=== PATIENT | female | born 1935 | race Caucasian/White ===

== ENCOUNTER 2016-03-21 05:56 | Inpatient (IN) | payer MEDICARE, OTHER ==
[~2016-03-21] VITALS: Ht 160 cm; Wt 88.0 kg
[2016-03-21] VITALS (25 sets, daily range): BP systolic 106–137; BP diastolic 51–93; PULSE 71–97; RESP 12–24; Ht 160 cm; Wt 88.0 kg
[~2016-03-21 05:56] MED LIST: ALPR1TAB2 PO; ANAG0.5C PO; ASPI-535 PO; HYDR-906; LOVA20TA; POLY17PO PO; PREMARIN; [UNRECOGNIZED DRUG - CODE] PO
[2016-03-21] MEDS ORDERED: LABETALOL HCL 20MG INJ IV PRN (06:00)
[2016-03-21] MEDS ORDERED: MIDAZOLAM 1 MG/ML 2 ML INJ IV PRN (06:00)
[2016-03-21] MEDS ORDERED: FENTAnyl 50 MCG/ML VIAL IV PRN ×2 (06:00)
[2016-03-21] MEDS ORDERED: MEPERIDINE 25 MG INJ IV PRN (06:00)
[2016-03-21] MEDS ORDERED: DIPHENHYDRAMINE 50 MG INJ IV PRN (06:00)
[2016-03-21] MEDS ORDERED: ATROPINE 1 MG/10 ML SYRINGE IV PRN (06:00)
[2016-03-21] MEDS ORDERED: ONDANSETRON 4 MG INJ IV PRN (06:00)
[2016-03-21] MEDS ORDERED: hydrALAzine 20 MG INJ IV PRN (06:00)
[2016-03-21] MEDS ORDERED: EPHEDrine SULFATE 50 MG/5 ML SYG IV PRN (06:00)
[2016-03-21] MEDS ORDERED: GLYCOPYRROLATE 1 MG INJ ONE (06:01)
[2016-03-21] MEDS ORDERED: NEOSTIGMINE 3 MG/3 ML SYRINGE ONE (06:01)
[2016-03-21] MEDS ORDERED: PROPOFOL 20 ML ONE (06:01)
[2016-03-21] MEDS ORDERED: LIDOCAINE 2% (SDV) 5 ML INJ ONE ×2 (06:01→11:20)
[2016-03-21] MEDS ORDERED: FENTAnyl 50 MCG/ML VIAL ONE ×2 (06:01→11:15)
[2016-03-21] MEDS ORDERED: MIDAZOLAM 1 MG/ML 2 ML INJ ONE (06:01)
[2016-03-21] MEDS ORDERED: ROCURONIUM 50 MG INJ ONE (06:01)
[2016-03-21] MEDS ORDERED: ROPIVACAINE 0.5 % 30 ML VIAL ONE ×2 (06:02→06:51)
[2016-03-21] MEDS ORDERED: LIDOCAINE 2%/EPI 30 ML INJ ONE (06:02)
[2016-03-21] MEDS ORDERED: DEXAMETHASONE 4 MG/ML 1 ML INJ ONE (06:05)
[2016-03-21] MEDS ORDERED: ONDANSETRON 4 MG INJ ONE (06:06)
[2016-03-21] MEDS ORDERED: TIZA4CAP6 PO (06:34)
--- NOTE | 2016-03-21 06:37 | HPN ---
Date/Time of Note Date/Time of Note DATE: 03/21/16 TIME: 06:37 Interval H&P Admission Note Pt. seen H&P reviewed: No system changes ANALISA WONG MD Mar 21, 2016 06:37
[2016-03-21] MEDS ORDERED: POLYMYXIN/BACITRACIN 1L IRRIG ONE (06:51)
[2016-03-21] MEDS ORDERED: POVIDONE IODINE 10% 28.4 GM OINT ONE (06:51)
[2016-03-21] MEDS ORDERED: CEFAZOLIN 1 GM INJ ONE (07:00)
[2016-03-21 07:22] LABS: INR 1.11; PROTIME 14.3 Sec (12.2-14.2); PT RATIO 1.1
[2016-03-21 07:23] LABS: PARTIAL THROMBOPLASTIN TIME 30.3 Sec (25.0-35.0)
[2016-03-21] MEDS ORDERED: hydrALAzine 20 MG INJ ONE (10:06)
[2016-03-21] MEDS ORDERED: LABETALOL HCL 20MG INJ ONE (10:10)
[2016-03-21] MEDS ORDERED: SUCCINYLCHOLINE CHLORIDE 100 MG/5 ML SYG IV ONE (10:22)
[2016-03-21] MEDS ORDERED: CEFAZOLIN 1 GM INJ IV SCH (12:30)
[2016-03-21] MEDS: morphine 1 MG/ML 30 ML (PCA) IV SCH (13:15)
[2016-03-21] MEDS: CEFAZOLIN 2 GM/50 ML (PMX) 50 ML IVPB SCH ×2 (13:59→21:17)
[2016-03-21] MEDS: SOD CHLORIDE 0.9% 1,000 ML IV SCH ×2 (13:59→22:15)
--- NOTE | 2016-03-21 14:22 | RADRPT ---
PROCEDURE: Intraoperative imaging of the right ankle with fluoroscopy. CLINICAL INDICATION: Right ankle pain. Intraoperative. TECHNIQUE: 13 images of the right ankle were obtained in the operating room with an image intensif ier. No radiologist was in attendance. 0.5 minutes of fluoroscopy time was used. COMPARISON: No prior study is available for comparison. FINDINGS: Images demonstrate fusion of the tibiotalar joint with 3 large cannulated screws. IMPRESSION: 1. Intraoperative imaging of the right ankle. RPTAT: QQ .Bolivar Lehman MD, MD Date Time Electronically viewed and signed by .Bolivar Lehmna MD, MD on 03/21/2016 14:21 .R/
--- NOTE | 2016-03-21 17:20 | OPR ---
DATE OF OPERATION: 03/21/2016 PREOPERATIVE DIAGNOSES: 1. 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 2. Status post subtalar fusion. 3. Osteochondral loose body. 4. Retained screw in the talus. POSTOPERATIVE DIAGNOSES: 1. 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 2. Status post subtalar fusion. 3. Osteochondral loose body. 4. Retained screw in the talus. OPERATION PERFORMED 1. Arthroscopy of the right ankle with soft distraction. 2. Extensive debridement, removal of all arthritic cartilage. 3. Removal of osteochondral loose body greater than 1 cm. 4. Insertion of the Ignite. 5. Arthrodesis 6. Insertion of Ignite and blood into the operative site. 7. Arthrodesis of the right ankle with three 7.3 AO cannulated screws and 2 washers. 8. Use of fluoroscopy to verify position of the angle guide pins and screws. 9. Short-leg cast. SURGEON: Analisa Carmen MD PETROPHYSICAL ENGINEER: Tung Curry MD ANESTHESIA: General with popliteal block. TOURNIQUET TIME: 155 minutes. DESCRIPTION OF PROCEDURE: The patient taken to the operating room and placed in supine position. S atisfactory popliteal block was given. Satisfactory general anesthesia was administered. The right thigh secured in the thigh clark. Arms were carefully padded and right leg was prepped and draped in usual manner. Superficial peroneal nerve could not be marked out, could not be identified. Sof t tissue distraction was applied after tourniquet was inflated to 250 mmHg. The ankle essentially h ad no articular cartilage left except for a few scattered portions of the tibia and the talus. It w as grade 4 chondromalacia throughout with sclerotic bone. Osteophytes along the anterior distal tib ia from medial to lateral. There was a large loose body in the medial malleolar talar articulatio n, which was removed with pituitary rongeur. The osteochondral loose body was removed with a pituitary rongeur. After we had removed the loose b qiana, removal of AO screw from the subtalar joint and talus. The articular cartilage was removed wi th different angled curettes and gildardo from the medial malleolus, the talus and then the lateral g utter and anterior gutter. After all articular cartilage was removed from the talus a bur was used to lightly abrade the bone 1 mm until we got through the sclerotic bone into good bleeding bone. Mu ltiple "spot welds" were made to facilitate healing along the talus. The articular surface was dimple michelle with a shaver and curettes and the tibia including the medial malleolus and fibula. A bur was u sed to remove bone until the sclerotic bone was eliminated, and there was good bleeding bone seen. Multiple spot welds were made again in the tibia and fibula and medial malleolus. Multiple drill ho les were made with 0.062 K-wire into the tibia and talus to facilitate bleeding. Using a 7-degree a rthroscope the medial and lateral gutters were debrided of all cartilage and then burred and spot we lds made. The same thing was done through the posterior lateral portal. The FHL was well visualize d and was intact. After good bleeding surfaces were available everywhere, we felt it was time to in sert the guide pins. Using the Micro Vector guide pin was inserted medially by marking the skin, ma eliza an incision through the skin and elevating the saphenous nerve and vein and then drilling the g uide pin through the Micro Vector device. The guide pin was 7.3 AO cannulated screw guide pin, the Micro Vector was used for the lateral side as well, marked the skin, made an incision along the post erior fibula, released the peroneal tendon sheath and inserted the guide pin. Guide pins were check ed in AP and lateral direction. Once they were exactly where we wanted them we closed the portal po steriorly and anterolaterally with 3-0 black nylon interrupted. The Ignite was mixed with blood and then injected to facilitate healing. That medial portal was closed then with 3-0 black nylon. Tanvir rniquet was released, bleeders were coagulated, wounds irrigated with antibiotic solution. The guid e pin from the medial side was then inserted with the foot in 5 degrees of valgus and neutral dorsi and plantarflexion trying to compress the ankle. Depth gauge was used and then the hole was partial ly drilled and then a screw was inserted 7.3 AO cannulated type with a washer. A second screw was p laced more posteriorly. This third guide pin was advanced through the fibula into the talar head an d neck, checked and partially drilled and then a screw inserted. Excellent fixation was obtained. It should be noted that prior to placing the screws across the ankle into the talus in the subtalar joint the screw was identified, that previously had been placed years ago. It was removed with a sc rewdriver. The hole was curetted clear and it was completely cleaned out. By doing this, it made i t much easier to pass the guide pins and screws to get good compression. We were able to miss all o f the maia with our screws. After all the screws were tight final fluoroscopic views in AP and l ateral directions showed good position and alignment of the screws in all 3 went into subtalar joint , except for the lateral screw purposely to get good compression. We used 32 mm threaded instead of 16 mm threads. Wounds were irrigated again with antibiotic solution. Deep tissues closed with 2-0 and 3-0 undyed Vicryl, and the skin with 4-0 black nylon. Saphenous nerve block was done with 0.5% ropivacaine. Compression dressing was applied and patient brought through and short cast was appli ed in neutral position. Interprocedure sponge and needle count was correct. Patient well and the c ast splint in the recovery room. LOAN ASSISTANT ORTHOPEDIC SURGEON: During the procedure, an psychiatric nursing assistant orthopedic surgeon was used at my request. The psychiatric nursing assistant helped with distracting the ankle, manipulating the arthroscope. The assist ant also inserted the guide pin and screws while I held the ankle reduced. Without a skilled orthop edic surgeon assisting me, this could not have been done; therefore, should be compensated appropria telsarah. Dictated By: ANALISA RENE/LIYA Conf#: [id number] DID#: [id number]
[2016-03-21] MEDS ORDERED: TIZANIDINE 4 MG TAB PO PRN (20:30)
[2016-03-21] MEDS ORDERED: ALPRAZOLAM 1 MG TAB PO SCH (21:00)
[2016-03-21] MEDS: SENNA/DOCUSATE NA (8.6MG/50MG) TAB PO SCH (21:17)
[2016-03-21] MEDS: ALPRAZOLAM 0.25 MG TAB PO SCH (22:15)
[2016-03-21] MEDS: ANAGRELIDE 0.5 MG CAP PO SCH (22:15)
[2016-03-21] MEDS: ONDANSETRON 4 MG INJ IV PRN (22:16)
[2016-03-22] MEDS: OXYCODONE/ACETAMINOPHEN (5/325) TAB PO PRN ×4 (02:24→19:38)
[2016-03-22] MEDS: CEFAZOLIN 2 GM/50 ML (PMX) 50 ML IVPB SCH ×3 (05:28→21:40)
--- NOTE | 2016-03-22 07:05 | PN ---
Date/Time of Note Date/Time of Note DATE: 03/22/16 TIME: 07:02 Assessment/Plan VTE Prophylaxis VTE Prophylaxis Intervention: ambulation, SCD's, other Lines/Catheters IV Catheter Type (from Nrsg): Peripheral IV Urinary Cath still in place: No Assessment/Plan Assessment/Plan POD#1 s/p R ankle fusion - Pain control - SCD's/ambulation/xarelto for DVT ppx - NWB RLE. PT today - IF pain controlled and cleared by PT, ok for d/c this afternoon Subjective 24 Hr Interval Summary Free Text/Dictation Pain this am as block wearing off. Slept some. Ate broth and jello so far. No BM. Exam/Review of Systems Vital Signs Vitals Vital Signs Date Time Temp Pulse Resp B/P Pulse Ox O2 Delivery O2 Flow Rate FiO2 03/22/16 05:00 18 03/21/16 20:26 98.1 72 132/68 98 Room Air 03/21/16 13:45 2.0 Intake and Output 03/21/16 03/21/16 03/22/16 15:00 23:00 07:00 Intake Total 1500 ml 690 ml 2000 ml Output Total 100 ml 850 ml 1500 ml Balance 1400 ml -160 ml 500 ml Exam RLE: cast intact. leg elevated. toes warm/well perfused. decreased sens to light touch globally about toes. Medications Medications Current Medications Senna/Docusate Sodium (Senokot-S) 1 tab BID PO Last administered on 03/21/16 21:17; Admin Dose 1 TAB; Start 03/21/16 at 21:00 Magnesium Hydroxide (Milk Of Mag) 30 ml HS PO ; Start 03/23/16 at 21:00 Bisacodyl 10 mg 10 mg DAILY PRN [place] CONSTIPATION; Start 03/21/16 at 12:30 Sodium Chloride (NS) 1,000 ml @ 100 mls/hr Q10H IV Last administered on 22:15; Admin Dose 100 MLS/HR; Start 03/21/16 at 12:23 Oxycodone/ Acetaminophen (Percocet (5/ 325)) 2 tab Q4H PRN PO PAIN Last administered on 03/22/16 02:24; Admin Dose 2 TAB; Start 03/21/16 at 12:30 Ondansetron HCl (Zofran Inj) 4 mg Q4H PRN IV NAUSEA AND/OR VOMITING Last administered on 03/21/16 22:16; Admin Dose 4 MG; Start 03/21/16 at 12:30 Morphine Sulfate 1.5 MG DOSE 10 ... Q4PCA IV Last administered on 03/21/16 13 :15; Admin Dose 30 MG; Start 03/21/16 at 12:30 Cefazolin Sodium/ Dextrose (Ancef 2 Gm/50 ml (Pmx)) 50 ml @ 100 mls/hr Q8 IVPB Last administered on 03/22/16 05:28; Admin Dose 100 MLS/HR; Start 03/21/16 at 14:00; Stop 03/23/16 at 06:29 Anagrelide HCl (Anagrelide) 0.5 mg BID PO Last administered on 03/21/16 22:15 ; Admin Dose 0.5 MG; Start 03/21/16 at 21:00 Tizanidine HCl (Zanaflex) 4 mg Q6H PRN PO SPASTICITY; Start 03/21/16 at 20:30 Alprazolam (Xanax) 0.5 mg HS PO Last administered on 03/21/16 22:15; Admin Dose 0.25 MG; Start 03/21/16 at 21:00 ANALISA WONG MD Mar 22, 2016 07:05
[2016-03-22 08:10] VITALS: BP 128/61; RESP 18
[2016-03-22] MEDS: SOD CHLORIDE 0.9% 1,000 ML IV SCH ×2 (08:23→17:04)
[2016-03-22] MEDS: ONDANSETRON 4 MG INJ IV PRN (08:24)
[2016-03-22] MEDS: ANAGRELIDE 0.5 MG CAP PO SCH ×2 (08:24→21:36)
[2016-03-22] MEDS: SENNA/DOCUSATE NA (8.6MG/50MG) TAB PO SCH ×2 (08:24→21:36)
--- NOTE | 2016-03-22 16:26 | RADRPT ---
PROCEDURE: XR left knee. CLINICAL INDICATION: Knee pain. TECHNIQUE: AP and lateral views are available for review. COMPARISON: 08/28/2012 FINDINGS: There is a bone anchor present in the proximal medial tibia. There is a total knee replacement. There is no evidence of loosening of the prosthesis. There is dif fuse osteopenia No acute fracture or dislocation is seen.No osseous lesions are identified. The sof t tissues are unremarkable . IMPRESSION: Unremarkable total knee replacement. Diffuse osteopenia. No fracture identified RPTAT: HGDB .Zia Cortes MD, MD Date Time Electronically viewed and signed by .Zia Cortes MD, on 03/22/2016 16:26 .B/
[2016-03-22] MEDS ORDERED: NALOXONE (0.4 MG/ML) INJ IV PRN (16:30)
[2016-03-22] MEDS: PANTOPRAZOLE 40 MG INJ IV SCH (17:03)
[2016-03-22] MEDS: RIVAROXABAN 10 MG TABLET PO SCH (17:04)
[2016-03-22] MEDS: morphine 1 MG/ML 30 ML (PCA) IV SCH (17:13)
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
[2016-03-22 19:46] VITALS: BP 128/60; RESP 18
[2016-03-22] MEDS: MAGNESIUM CHLORIDE (SR) 64 MG TAB PO SCH (21:36)
[2016-03-22] MEDS: TIZANIDINE 4 MG TAB PO SCH (21:36)
[2016-03-22] MEDS: ALPRAZOLAM 0.25 MG TAB PO SCH ×2 (23:12→23:14)
[2016-03-23] MEDS: OXYCODONE/ACETAMINOPHEN (5/325) TAB PO PRN ×4 (01:22→20:15)
[2016-03-23] MEDS: SOD CHLORIDE 0.9% 1,000 ML IV SCH ×2 (04:23→12:11)
[2016-03-23] MEDS: PANTOPRAZOLE 40 MG INJ IV SCH ×2 (05:23→17:59)
[2016-03-23] MEDS: CEFAZOLIN 2 GM/50 ML (PMX) 50 ML IVPB SCH (05:24)
[2016-03-23 05:58] LABS: BASOPHILS % 0.3 % (0.0-2.0); EOSINOPHILS # 0.1 10^3/ul (0.0-0.5); HEMOGLOBIN 8.2 g/dl (12.0-16.0); LYMPHOCYTES % 10.2 % (15.0-51.0); MEAN CORPUSCULAR HEMOGLOBIN 31.8 pg (29.0-33.0); MEAN CORPUSCULAR HGB CONC 34.4 g/dl (32.0-37.0); MEAN CORPUSCULAR VOLUME 92.5 fl (82.0-101.0); MONOCYTE # 0.8 10^3/ul (0.3-0.9); MONOCYTES % 8.4 % (0.0-11.0); NEUTROPHIL # 7.9 10^3/ul (1.6-7.5); NEUTROPHILS % 80.1 % (39.0-77.0); PLATELET COUNT 464 10^3/UL (140-440); RED BLOOD COUNT 2.59 10^6/ul (4.20-5.40); RED CELL DISTRIBUTION WIDTH 17.1 % (11.5-14.5); UNCORRECTED WBC 9.8 10^3/ul (4.8-10.8); WHITE BLOOD COUNT 9.8 10^3/ul (4.8-10.8)
[2016-03-23 06:05] LABS: ALBUMIN 3.1 g/dl (3.3-4.9); POTASSIUM 4.2 mmol/L (3.5-5.1)
[2016-03-23 06:08] LABS: ALBUMIN/GLOBULIN RATIO 1.14; BILIRUBIN,INDIRECT 0.1 mg/dl (0-1.1); BILIRUBIN,TOTAL 0.1 mg/dl (0.2-1.3); CALCIUM 8.4 mg/dl (8.4-10.2); CREATININE 1.07 mg/dl (0.44-1.00); TOTAL PROTEIN 5.8 g/dl (6.1-8.1)
[2016-03-23 06:20] LABS: CONDITION 1; LH ANALYZER COMMENTS 1; SUSPECT 1
[2016-03-23] MEDS: ONDANSETRON 4 MG INJ IV PRN (06:38)
--- NOTE | 2016-03-23 06:41 | PN ---
Date/Time of Note Date/Time of Note DATE: 03/23/16 TIME: 06:38 Assessment/Plan VTE Prophylaxis VTE Prophylaxis Intervention: ambulation, SCD's, other Lines/Catheters IV Catheter Type (from Nrsg): Peripheral IV Urinary Cath still in place: No Assessment/Plan Assessment/Plan POD#2 s/p R ankle fusion - Cont PT, NWB RLE - Pain control - cont current regimen. wean off product development director by tomorrow - DVT ppx: xarelto, scd - Advance diet slowly - Dispo: to SNF tomorrow - Appreciate medicine consult/assistance Subjective 24 Hr Interval Summary Free Text/Dictation Nausea this morning, no emesis. Pain better today. Feeling back in foot. Exam/Review of Systems Vital Signs Vitals Vital Signs Date Time Temp Pulse Resp B/P Pulse Ox O2 Delivery O2 Flow Rate FiO2 03/23/16 01:00 18 03/22/16 19:46 98.8 76 128/60 98 03/21/16 20:26 Room Air 03/21/16 13:45 2.0 Intake and Output 03/22/16 03/22/16 03/23/16 15:00 23:00 07:00 Intake Total 50 ml 1220 ml Balance 50 ml 1220 ml Exam RLE: cast intact RLE, elevated. sensation intact light touch toes, bcr, flexes and extends great toe. Results Result Diagram: 03/23/16 0435 03/23/16 0435 Results 24 hrs Laboratory Tests Test 03/23/16 04:35 Alanine Aminotransferase (ALT/SGPT) 25 Albumin 3.1 L Albumin/Globulin Ratio 1.14 Alkaline Phosphatase 54 Anion Gap 11 Aspartate Amino Transf (AST/SGOT) 41 Basophils # 0.0 Basophils % 0.3 Blood Morphology Comment Blood Urea Nitrogen 20 Calcium Level 8.4 Carbon Dioxide Level 26 Chloride Level 106 Creatinine 1.07 H Direct Bilirubin 0.00 Eosinophils # 0.1 Eosinophils % 1.0 Globulin 2.70 Glucose Level 98 Hematocrit 24.0 L Hemoglobin 8.2 L Indirect Bilirubin 0.1 Lymphocytes # 1.0 Lymphocytes % 10.2 L Magnesium Level 2.1 Mean Corpuscular Hemoglobin 31.8 Mean Corpuscular Hemoglobin Concent 34.4 Mean Corpuscular Volume 92.5 Mean Platelet Volume 10.0 Monocytes # 0.8 Monocytes % 8.4 Neutrophils # 7.9 H Neutrophils % 80.1 H Nucleated Red Blood Cells # 0.0 Nucleated Red Blood Cells % 0.0 Platelet Count 464 H Potassium Level 4.2 Red Blood Count 2.59 L Red Cell Distribution Width 17.1 H Sodium Level 139 Total Bilirubin 0.1 L Total Protein 5.8 L White Blood Count 9.8 Medications Medications Current Medications Senna/Docusate Sodium (Senokot-S) 1 tab BID PO Last administered on 03/22/16 21:36; Admin Dose 1 TAB; Start 03/21/16 at 21:00 Magnesium Hydroxide (Milk Of Mag) 30 ml HS PO ; Start 03/23/16 at 21:00 Bisacodyl 10 mg 10 mg DAILY PRN [place] CONSTIPATION; Start 03/21/16 at 12:30 Sodium Chloride (NS) 1,000 ml @ 100 mls/hr Q10H IV Last administered on 17:04; Admin Dose 100 MLS/HR; Start 03/21/16 at 12:23 Oxycodone/ Acetaminophen (Percocet (5/ 325)) 2 tab Q4H PRN PO PAIN Last administered on 03/23/16 01:22; Admin Dose 2 TAB; Start 03/21/16 at 12:30 Ondansetron HCl (Zofran Inj) 4 mg Q4H PRN IV NAUSEA AND/OR VOMITING Last administered on 03/22/16 08:24; Admin Dose 4 MG; Start 03/21/16 at 12:30 Morphine Sulfate (morphine) 1.5 MG DOSE 10 ... Q4PCA IV Last administered on 17:13; Admin Dose 30 MG; Start 03/21/16 at 12:30 Anagrelide HCl (Anagrelide) 0.5 mg BID PO Last administered on 03/22/16 21:36 ; Admin Dose 0.5 MG; Start 03/21/16 at 21:00 Alprazolam (Xanax) 0.5 mg HS PO Last administered on 03/22/16 23:14; Admin Dose 0.25 MG; Start 03/21/16 at 21:00 Pantoprazole (Protonix Iv) 40 mg BID@06,18 IV Last administered on 03/23/16 05 :23; Admin Dose 40 MG; Start 03/22/16 at 18:00 Tizanidine HCl (Zanaflex) 4 mg BID PO Last administered on 03/22/16 21:36; Admin Dose 4 MG; Start 03/22/16 at 21:00 Magnesium Chloride (Mag 64) 128 mg BID PO Last administered on 03/22/16 21:36 ; Admin Dose 128 MG; Start 03/22/16 at 21:00 Naloxone HCl (Narcan) 0.2 mg Q2M PRN IV DECREASED REPIRATORY RATE; Start at 16:30 ANALISA WONG MD Mar 23, 2016 06:41
[2016-03-23 07:49] VITALS: BP 123/58; RESP 20
[2016-03-23] MEDS: SENNA/DOCUSATE NA (8.6MG/50MG) TAB PO SCH ×2 (08:50→21:55)
[2016-03-23] MEDS: MAGNESIUM CHLORIDE (SR) 64 MG TAB PO SCH ×2 (08:51→21:56)
[2016-03-23] MEDS: ANAGRELIDE 0.5 MG CAP PO SCH ×2 (08:51→21:56)
[2016-03-23] MEDS: TIZANIDINE 4 MG TAB PO SCH ×2 (08:52→21:55)
[2016-03-23] MEDS: RIVAROXABAN 10 MG TABLET PO SCH (17:59)
[2016-03-23] MEDS ORDERED: ACETAMINOPHEN 500 MG TAB PO STA (18:01)
[2016-03-23] MEDS ORDERED: FUROSEMIDE 20 MG INJ IV ONE (18:30)
[2016-03-23] MEDS ORDERED: DIPHENHYDRAMINE 50 MG CAP PO ONE (18:30)
--- NOTE | 2016-03-23 19:15 | PN ---
DATE: 03/23/2016 SUBJECTIVE: The patient complains of fatigue and cold today. She still has pain and instability of the left knee when she tries to put weight on it. The patient also reports that she was unable to sleep last night because the hypoxia alarm kept going off. OBJECTIVE: VITAL SIGNS: Temperature 98.4, blood pressure 123/58, pulse of 88, respiration rate 20, O2 saturati on 95% on room air. HEENT: Pupils equally round, reactive to light. Oropharynx clear. CHEST: Lungs are clear to auscultation anteriorly. CARDIAC: Regular rate and rhythm. Normal S1, S2. ABDOMEN: Active bowel sounds, soft, nondistended, nontender. EXTREMITIES: Right lower leg in a plaster cast elevated. Left lower leg has normal distal pulses a nd negative for Homans. LABORATORY DATA: WBC 9.8, hemoglobin 8.2, hematocrit 24.0, platelet count 464,000. Sodium 139, pot assium 4.2, chloride 106, bicarbonate 26, BUN 20, creatinine 1.07, glucose 98. Liver enzymes are wi thin normal limits except for decreased total protein of 5.8 and albumin of 3.1. Her magnesium is n ormal at 2.1. The patient's left knee x-ray shows previous total knee replacement, diffuse osteopen ia, no fracture, and no abnormalities in alignment. ASSESSMENT AND PLAN: 1. Status post right ankle arthrodesis and arthroscopy. The patient still has multiple issues post operatively. We will continue to proceed with the physical therapy very gingerly. Will consider le ft knee brace for increased ability of that loose knee with physical therapy. 2. Anemia. The patient has mild chronic anemia from her myelodysplastic syndrome, which is now wor se after surgery. This is also contributing to her weakness, fatigue, coldness. The patient is agr eeable to receiving transfusion with packed red blood cells and we will go ahead and transfuse her w ith 3 units of PRBCs today with premedications of Tylenol and Benadryl. I will also give her a very small dose of furosemide for diuresis after the first unit of packed red blood cells, since patient has been receiving IV fluids continuously for the past few days and may be a little bit fluid overl oaded after transfusion. 3. Frequent episodes of hypopnea and hypoxia at night, most likely due to continuous ROLLED OATS MILL OPERATOR administra tion with morphine. The patient is not in any pain right now, so we will discontinue the continuous IV drip and ROLLED OATS MILL OPERATOR, but allow the delivery of intermittent medication as needed by the patient. Dictated By: SANDRA MORIN MD DP/NTS Conf#: [id number] DID#: [id number] CC: ANALISA WONG MD;*EndCC*
[2016-03-23 19:56] VITALS: BP 126/61; RESP 22
[2016-03-23] MEDS: MAGNESIUM HYDROXIDE 30ML CUP PO SCH (21:55)
[2016-03-23] MEDS: ALPRAZOLAM 0.25 MG TAB PO SCH (21:55)
[2016-03-24] MEDS: OXYCODONE/ACETAMINOPHEN (5/325) TAB PO PRN ×4 (00:26→16:29)
[2016-03-24] MEDS ORDERED: FUROSEMIDE 20 MG INJ ONE (04:12)
[2016-03-24 06:12] LABS: BASOPHILS % 0.3 % (0.0-2.0); EOSINOPHILS # 0.1 10^3/ul (0.0-0.5); EOSINOPHILS % 1.6 % (0.0-7.0); HEMATOCRIT 29.1 % (37.0-47.0); HEMOGLOBIN 10.1 g/dl (12.0-16.0); LYMPHOCYTES # 0.6 10^3/ul (0.8-2.9); LYMPHOCYTES % 7.1 % (15.0-51.0); MEAN CORPUSCULAR HGB CONC 34.5 g/dl (32.0-37.0); MEAN CORPUSCULAR VOLUME 92.8 fl (82.0-101.0); MEAN PLATELET VOLUME 9.9 fl (7.4-10.4); MONOCYTE # 0.6 10^3/ul (0.3-0.9); NEUTROPHIL # 6.7 10^3/ul (1.6-7.5); PLATELET COUNT 474 10^3/UL (140-440); RED BLOOD COUNT 3.14 10^6/ul (4.20-5.40); RED CELL DISTRIBUTION WIDTH 16.3 % (11.5-14.5)
[2016-03-24 06:17] LABS: CONDITION 1; LH ANALYZER COMMENTS 1; SUSPECT 1
[2016-03-24 06:20] LABS: CALCIUM 8.5 mg/dl (8.4-10.2); CREATININE 1.03 mg/dl (0.44-1.00)
--- NOTE | 2016-03-24 07:08 | PN ---
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 Pain controlled. No acute events overnight. Exam/Review of Systems Vital Signs Vitals Vital Signs Date Time Temp Pulse Resp B/P Pulse Ox O2 Delivery O2 Flow Rate FiO2 03/23/16 19:56 100.2 87 22 126/61 97 03/21/16 20:26 Room Air 03/21/16 13:45 2.0 Intake and Output 03/23/16 03/23/16 03/24/16 15:00 23:00 07:00 Intake Total 1360 ml 1470 ml Balance 1360 ml 1470 ml Exam RLE: cast intact and elevated. sens/motor intact exposed toes. bcr. Results Result Diagram: 03/24/16 0450 03/24/16 0450 Results 24 hrs Laboratory Tests Test 03/24/16 04:50 Anion Gap 12 Basophils # 0.0 Basophils % 0.3 Blood Morphology Comment Blood Urea Nitrogen 19 Calcium Level 8.5 Carbon Dioxide Level 27 Chloride Level 104 Creatinine 1.03 H Eosinophils # 0.1 Eosinophils % 1.6 Glucose Level 118 Hematocrit 29.1 #L Hemoglobin 10.1 #L Lymphocytes # 0.6 L Lymphocytes % 7.1 L Mean Corpuscular Hemoglobin 32.0 Mean Corpuscular Hemoglobin Concent 34.5 Mean Corpuscular Volume 92.8 Mean Platelet Volume 9.9 Monocytes # 0.6 Monocytes % 8.0 Neutrophils # 6.7 Neutrophils % 83.0 H Nucleated Red Blood Cells # 0.0 Nucleated Red Blood Cells % 0.0 Platelet Count 474 H Potassium Level 4.0 Red Blood Count 3.14 #L Red Cell Distribution Width 16.3 H Sodium Level 139 White Blood Count 8.0 Medications Medications Current Medications Senna/Docusate Sodium (Senokot-S) 1 tab BID PO Last administered on 03/23/16 21:55; Admin Dose 1 TAB; Start 03/21/16 at 21:00 Magnesium Hydroxide (Milk Of Mag) 30 ml HS PO Last administered on 03/23/16 21 :55; Admin Dose 30 ML; Start 03/23/16 at 21:00 Bisacodyl (Dulcolax Supp) 10 mg DAILY PRN MS CONSTIPATION; Start 03/21/16 at 12 :30 Oxycodone/ Acetaminophen (Percocet (5/ 325)) 2 tab Q4H PRN PO PAIN Last administered on 03/24/16 00:26; Admin Dose 2 TAB; Start 03/21/16 at 12:30 Ondansetron HCl (Zofran Inj) 4 mg Q4H PRN IV NAUSEA AND/OR VOMITING Last administered on 03/23/16 06:38; Admin Dose 4 MG; Start 03/21/16 at 12:30 Anagrelide HCl (Anagrelide) 0.5 mg BID PO Last administered on 03/23/16 21:56 ; Admin Dose 0.5 MG; Start 03/21/16 at 21:00 Alprazolam (Xanax) 0.5 mg HS PO Last administered on 03/23/16 21:55; Admin Dose 0.5 MG; Start 03/21/16 at 21:00 Tizanidine HCl (Zanaflex) 4 mg BID PO Last administered on 03/23/16 21:55; Admin Dose 4 MG; Start 03/22/16 at 21:00 Magnesium Chloride (Mag 64) 128 mg BID PO Last administered on 03/23/16 21:56 ; Admin Dose 128 MG; Start 03/22/16 at 21:00 Naloxone HCl (Narcan) 0.2 mg Q2M PRN IV DECREASED REPIRATORY RATE; Start at 16:30 Pantoprazole (Protonix Iv) 40 mg AM IV ; Start 03/24/16 at 09:00 ANALISA WONG MD Mar 24, 2016 07:08
[2016-03-24 08:07] VITALS: BP 133/60; RESP 20
[2016-03-24] MEDS: TIZANIDINE 4 MG TAB PO SCH ×2 (09:00→20:40)
[2016-03-24] MEDS: MAGNESIUM CHLORIDE (SR) 64 MG TAB PO SCH ×2 (10:01→20:37)
[2016-03-24] MEDS: ANAGRELIDE 0.5 MG CAP PO SCH ×2 (10:01→20:37)
[2016-03-24] MEDS: PANTOPRAZOLE 40 MG INJ IV SCH (10:01)
[2016-03-24] MEDS: SENNA/DOCUSATE NA (8.6MG/50MG) TAB PO SCH ×2 (10:02→20:37)
[2016-03-24] MEDS: ALPRAZOLAM 0.25 MG TAB PO SCH (17:13)
[2016-03-24 17:30] VITALS: BP 160/85; RESP 18
[2016-03-24 17:45] VITALS: BP 155/65; RESP 18
[2016-03-24] MEDS ORDERED: ACETAMINOPHEN 500 MG TAB PO STA (17:45)
[2016-03-24] MEDS ORDERED: DIPHENHYDRAMINE 50 MG CAP PO ONE (18:00)
[2016-03-24] MEDS ORDERED: ALPRAZOLAM 0.5 MG TAB PO PRN (18:00)
--- NOTE | 2016-03-24 18:06 | PN ---
DATE: 03/24/2016 SUBJECTIVE: The patient complains of fatigue this morning because she had to urinate multiple times throughout the night after the IV Lasix was given. Requests increase Xanax for agitation and anxie ty. OBJECTIVE: VITAL SIGNS: Temperature max 100.2, currently patient has a temperature of 99.5, blood pressure 133 /60, pulse of 96, respiration rate 20, O2 saturation 94% on room air. HEENT: Pupils equal, round, reactive to light. Oropharynx clear. CHEST: Clear to auscultation. CARDIAC: Regular rate and rhythm, normal S1, S2. ABDOMEN: Active bowel sounds, soft, nondistended, nontender. EXTREMITIES: Left lower extremity pulses and sensory intact. Homans negative. Right lower extremi ty in inkmc-qwd-leby plaster cast. LABORATORY DATA: WBC 8.0, hemoglobin 10.1, hematocrit 29.1, platelet count 474,000. The patient's sodium is 139, potassium 4.0, BUN is 19, creatinine 1.03, glucose 118. ASSESSMENT AND PLAN 1. Status post right ankle arthroscopic arthrodesis. The patient doing well with minimal pain. He r left knee is also improving and she will be wearing the left knee brace for physical therapy in e future. 2. Anemia improving after 1 unit of packed red blood cells. We will continue with the second unit of blood today. Recheck CBC in a.m. The patient did have a low-grade temperature last night. We w ill need to make sure she gets the Tylenol and Benadryl during transfusion today. 3. Anxiety. We will allow patient alprazolam low-dose q.6h. as needed for agitation or anxiety. 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 Dictated By: SANDRA MORIN MD DP/NTS Conf#: [id number] DID#: [id number]
[2016-03-24] MEDS: RIVAROXABAN 10 MG TABLET PO SCH (18:48)
[2016-03-24 19:36] VITALS: BP 136/64; RESP 19
[2016-03-24 20:30] VITALS: BP 125/65; PULSE 90; RESP 18
[2016-03-24] MEDS: MAGNESIUM HYDROXIDE 30ML CUP PO SCH (20:37)
[2016-03-24 21:30] VITALS: BP 124/63; PULSE 88; RESP 17
[2016-03-25] MEDS: OXYCODONE/ACETAMINOPHEN (5/325) TAB PO PRN ×5 (00:07→21:00)
[2016-03-25] MEDS: BISACODYL 10 MG SUPP PR PRN ×2 (05:19→11:16)
[2016-03-25 05:36] LABS: BASOPHILS % 0.4 % (0.0-2.0); EOSINOPHILS # 0.2 10^3/ul (0.0-0.5); EOSINOPHILS % 2.5 % (0.0-7.0); HEMATOCRIT 30.2 % (37.0-47.0); HEMOGLOBIN 10.2 g/dl (12.0-16.0); LYMPHOCYTES # 1.6 10^3/ul (0.8-2.9); LYMPHOCYTES % 22.8 % (15.0-51.0); MEAN CORPUSCULAR HEMOGLOBIN 31.3 pg (29.0-33.0); MEAN CORPUSCULAR HGB CONC 33.7 g/dl (32.0-37.0); MEAN CORPUSCULAR VOLUME 93.1 fl (82.0-101.0); MEAN PLATELET VOLUME 9.6 fl (7.4-10.4); MONOCYTE # 0.7 10^3/ul (0.3-0.9); MONOCYTES % 10.2 % (0.0-11.0); NEUTROPHIL # 4.4 10^3/ul (1.6-7.5); NEUTROPHILS % 64.1 % (39.0-77.0); PLATELET COUNT 441 10^3/UL (140-440); RED BLOOD COUNT 3.24 10^6/ul (4.20-5.40); RED CELL DISTRIBUTION WIDTH 15.4 % (11.5-14.5); UNCORRECTED WBC 6.9 10^3/ul (4.8-10.8); WHITE BLOOD COUNT 6.9 10^3/ul (4.8-10.8)
[2016-03-25 05:42] LABS: CONDITION 1; LH ANALYZER COMMENTS 1
[2016-03-25 06:21] LABS: POTASSIUM 4.3 mmol/L (3.5-5.1)
[2016-03-25 06:23] LABS: CREATININE 1.04 mg/dl (0.44-1.00)
[2016-03-25 06:24] LABS: CALCIUM 8.3 mg/dl (8.4-10.2)
--- NOTE | 2016-03-25 06:47 | PN ---
Date/Time of Note Date/Time of Note DATE: 03/25/16 TIME: 06:44 Assessment/Plan VTE Prophylaxis VTE Prophylaxis Intervention: ambulation, SCD's, other Lines/Catheters IV Catheter Type (from Nrsg): Peripheral IV Urinary Cath still in place: No Assessment/Plan Assessment/Plan POD#4 s/p R ankle fusion - PT, NWB RLE - xarelto, scds for dvt ppx - advance diet as francisco - pain control - dispo: discharge to SNF today - f/u as scheduled next week with Dr. Wong Subjective 24 Hr Interval Summary Free Text/Dictation Doing better. pain controlled. no n/v. Exam/Review of Systems Vital Signs Vitals Vital Signs Date Time Temp Pulse Resp B/P Pulse Ox O2 Delivery O2 Flow Rate FiO2 03/24/16 21:30 98.0 88 17 124/63 98 Room Air 03/21/16 13:45 2.0 Intake and Output 03/24/16 03/24/16 03/25/16 15:00 23:00 07:00 Intake Total 1550 ml 720 ml Balance 1550 ml 720 ml Exam RLE: cast intact. bcr. df/pf toes. Results Result Diagram: 03/25/16 0445 03/25/16 0445 Results 24 hrs Laboratory Tests Test 03/25/16 04:45 Anion Gap 8 Basophils # 0.0 Basophils % 0.4 Blood Morphology Comment Blood Urea Nitrogen 21 H Calcium Level 8.3 L Carbon Dioxide Level 31 Chloride Level 103 Creatinine 1.04 H Eosinophils # 0.2 Eosinophils % 2.5 Glucose Level 89 Hematocrit 30.2 L Hemoglobin 10.2 L Lymphocytes # 1.6 Lymphocytes % 22.8 Mean Corpuscular Hemoglobin 31.3 Mean Corpuscular Hemoglobin Concent 33.7 Mean Corpuscular Volume 93.1 Mean Platelet Volume 9.6 Monocytes # 0.7 Monocytes % 10.2 Neutrophils # 4.4 Neutrophils % 64.1 Nucleated Red Blood Cells # 0.0 Nucleated Red Blood Cells % 0.0 Platelet Count 441 H Potassium Level 4.3 Red Blood Count 3.24 L Red Cell Distribution Width 15.4 H Sodium Level 138 White Blood Count 6.9 Medications Medications Current Medications Senna/Docusate Sodium (Senokot-S) 1 tab BID PO Last administered on 03/24/16t 20:37; Admin Dose 1 TAB; Start 03/21/16 at 21:00 Magnesium Hydroxide (Milk Of Mag) 30 ml HS PO Last administered on 03/24/16 20 :37; Admin Dose 30 ML; Start 03/23/16 at 21:00 Bisacodyl (Dulcolax Supp) 10 mg DAILY PRN CO CONSTIPATION Last administered on 03/25/16 05:19; Admin Dose 10 MG; Start 03/21/16 at 12:30 Oxycodone/ Acetaminophen (Percocet (5/ 325)) 2 tab Q4H PRN PO PAIN Last administered on 03/25/16 04:51; Admin Dose 2 TAB; Start 03/21/16 at 12:30 Ondansetron HCl (Zofran Inj) 4 mg Q4H PRN IV NAUSEA AND/OR VOMITING Last administered on 03/23/16 06:38; Admin Dose 4 MG; Start 03/21/16 at 12:30 Anagrelide HCl (Anagrelide) 0.5 mg BID PO Last administered on 03/24/16 20:37 ; Admin Dose 0.5 MG; Start 03/21/16 at 21:00 Alprazolam (Xanax) 0.5 mg HS PO Last administered on 03/24/16 17:13; Admin Dose 0.5 MG; Start 03/21/16 at 21:00 Tizanidine HCl (Zanaflex) 4 mg BID PO Last administered on 03/24/16 20:40; Admin Dose 4 MG; Start 03/22/16 at 21:00 Magnesium Chloride (Mag 64) 128 mg BID PO Last administered on 03/24/16 20:37 ; Admin Dose 128 MG; Start 03/22/16 at 21:00 Naloxone HCl (Narcan) 0.2 mg Q2M PRN IV DECREASED REPIRATORY RATE; Start at 16:30 Pantoprazole (Protonix Iv) 40 mg AM IV Last administered on 03/24/16 10:01; Admin Dose 40 MG; Start 03/24/16 at 09:00 Alprazolam (Xanax) 0.5 mg Q8H PRN PO ANXIETY; Start 03/24/16 at 18:00 ANALISA WONG MD Mar 25, 2016 06:47
[2016-03-25 07:47] VITALS: BP 147/62; RESP 18
[2016-03-25] MEDS: TIZANIDINE 4 MG TAB PO SCH ×2 (10:01→21:51)
[2016-03-25] MEDS: PANTOPRAZOLE 40 MG INJ IV SCH (10:01)
[2016-03-25] MEDS: SENNA/DOCUSATE NA (8.6MG/50MG) TAB PO SCH ×2 (10:01→21:51)
[2016-03-25] MEDS: ANAGRELIDE 0.5 MG CAP PO SCH ×2 (10:02→21:51)
[2016-03-25] MEDS: MAGNESIUM CHLORIDE (SR) 64 MG TAB PO SCH ×2 (10:02→21:00)
[2016-03-25] MEDS ORDERED: SLOMAG PO (12:47)
[2016-03-25] MEDS ORDERED: PANT40TA4 PO (12:47)
[2016-03-25] MEDS ORDERED: ALPR0.5T6 PO (12:47)
[2016-03-25] MEDS ORDERED: MAGNESIUM CITRATE 300 ML BTL PO ONE (13:00)
[2016-03-25] MEDS: RIVAROXABAN 10 MG TABLET PO SCH (16:58)
[2016-03-25 17:55] VITALS: BP 183/77; PULSE 78
[2016-03-25 18:48] VITALS: BP 170/71; PULSE 76
[2016-03-25 20:17] VITALS: BP 119/64; RESP 20
[2016-03-25] MEDS: MAGNESIUM HYDROXIDE 30ML CUP PO SCH (21:00)
[2016-03-25 21:55] VITALS: BP 156/72; PULSE 76; RESP 18
[2016-03-25] MEDS: ALPRAZOLAM 0.25 MG TAB PO SCH (21:55)
[2016-03-25 23:50] VITALS: BP 143/63; PULSE 83; RESP 18
[2016-03-26] MEDS: OXYCODONE/ACETAMINOPHEN (5/325) TAB PO PRN ×2 (04:55→11:07)
[2016-03-26 05:12] VITALS: BP 139/78; PULSE 74; RESP 18
[2016-03-26 07:29] VITALS: BP 137/63; RESP 19
--- NOTE | 2016-03-26 08:36 | DS ---
DATE OF ADMISSION: 03/22/2016 DATE OF DISCHARGE: 03/25/2016 DISCHARGE DIAGNOSES: 1. 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 2. Status post arthrodesis via arthroscopy of the right ankle. 3. Anemia. 4. Myelodysplasia with thrombocytosis. 5. Hypertension. 6. Generalized anxiety disorder. 7. Status post recent left knee dislocation. 8. History of multiple orthopedic surgeries, including bilateral total knee replacements. 9. Frequent episodic muscle spasms. 10. Cervical and lumbar spine degenerative disk disease, status post fusion and laminectomy, respec tively. HOSPITAL COURSE: This 80-year-old female with multiple medical problems, including right a nkle severe degenerative joint disease, causing immobility due to pain on weightbearing, was admitte d for right ankle surgery under Dr. Carmen's care and the patient did well from a surgical point of view; however, her physical therapy was compromised by the fact that she had a knee dislocation on t he day prior to surgery on the contralateral side, making it difficult for her to bear weight on the contralateral leg after surgery. Other postoperative complicating factors included the fact that h er chronic anemia which worsened, requiring transfusion with 2 units of packed red blood cells. The patient also had a mild exacerbation of her anxiety, requiring adjustment in dosages of her alprazo jenkins. The patient appears to be stable otherwise and since she lives alone and for the immediate per iod postoperatively where she has the right ankle plaster cast and she cannot bear weight on that ri ght leg, it is unsafe for her to return to home, so we are transferring her to a retirement [facility] for ongoing rehabilitation and care until the patient is able to be discharged to home safely. DISPOSITION: Discharged to [facility], in fair condition. FOLLOWUP: The patient will be seen at the retirement facility by Dr. aSndra Varghese. DISCHARGE MEDICATIONS: Includes: 1. Xarelto 10 mg p.o. every day. 2. Tizanidine 4 mg p.o. b.i.d. 3. [place] 10/325, one p.o. q.6h. p.r.n. pain. 4. Pantoprazole 40 mg p.o. q.a.m. 5. Anagrelide 0.5 mg p.o. b.i.d. 6. Alprazolam 0.5 mg p.o. q.8h. p.r.n. anxiety, agitation or sleep. 7. Senokot 1 tab p.o. b.i.d. 8. Milk of Magnesia as needed for constipation. 9. Clonidine 0.1 q.6h. as needed for elevated blood pressure. Dictated By: SANDRA VARGHESE MD DP/NTS Conf#: [id number] DID#: [id number]
--- NOTE | 2016-03-26 11:04 | DS ---
DATE OF ADMISSION: 03/22/2016 DATE OF DISCHARGE: DISCHARGE DIAGNOSIS: Severe degenerative arthritis, right ankle. SURGERY: On 03/21/2016: 1. Arthroscopy of the right ankle 2. Extensive debridement. 3. Insertion of Ignite into the fusion site. 4. Arthrodesis of the right ankle with 3 screws. HISTORY OF PRESENT ILLNESS: The patient is an 80-year-old female with long history of severe pain i n her right ankle admitted now for arthroscopic ankle fusion. PAST MEDICAL HISTORY: See the history and physical record. PHYSICAL EXAMINATION: Normal except the orthopedic exam, which reveals diffuse pain about the ankle with decreased range of motion and strength. LABORATORY/DIAGNOSTIC DATA: Laboratories normal. Chest x-ray was clear. EKG was stable. HOSPITAL COURSE: The patient was cleared medically, taken to the operating room and underwent the a darcie-mentioned procedure. Postoperatively, she had difficulty ambulating because of problems with h er left knee. Her daughter brought her knee brace in for her, and stabilized her enough she could g et up with a walker. She was discharged to a residential facility to continue her rehabilitatio n and be followed in the office in 1 week. She was discharged on Xarelto 10 mg once a day for 2 wee ks and pain medication. Dictated By: ANALISA RENE/LIYA Conf#: [id number] DID#: [id number]
[2016-03-26] MEDS: PANTOPRAZOLE 40 MG INJ IV SCH (11:05)
[2016-03-26] MEDS: MAGNESIUM CHLORIDE (SR) 64 MG TAB PO SCH (11:06)
[2016-03-26] MEDS: SENNA/DOCUSATE NA (8.6MG/50MG) TAB PO SCH (11:06)
[2016-03-26] MEDS: TIZANIDINE 4 MG TAB PO SCH (11:06)
[2016-03-26] MEDS: ANAGRELIDE 0.5 MG CAP PO SCH (11:07)
== END 2016-03-26 15:30 | DRG 494 ==
LOC: REC 05:56 → SDS 05:56 → UNDOADMIN 05:56 → EDSTATUS 07:00 → MS1 13:26 → REC 13:26 → MS1 03-22 15:42 → SDS 03-22 15:42
PROVIDERS: ADMIT Orthopaedic Surgery; ATTEND Orthopaedic Surgery
PROC: 0SG Lower Joints, Fusion (ICD-10-PCS; 2016-03-21)
PROC: 0SCF4ZZ Extirpation of Matter from Right Ankle Joint, Percutaneous Endoscopic Approach (ICD-10-PCS; 2016-03-21)
PROC: 0SP Lower Joints, Removal (ICD-10-PCS; 2016-03-21)
PROC: 30233N1 Transfusion of Nonautologous Red Blood Cells into Peripheral Vein, Percutaneous Approach (ICD-10-PCS; 2016-03-21)
PROC: 0SGF44Z Fusion of Right Ankle Joint with Internal Fixation Device, Percutaneous Endoscopic Approach (ICD-10-PCS; principal; 2016-03-21 07:00)
DX: M19.071 Primary osteoarthritis, right ankle and foot (principal); D69.6 Thrombocytopenia, unspecified; D63.8 Anemia in other chronic diseases classified elsewhere; D46.9 Myelodysplastic syndrome, unspecified; M24.071 Loose body in right ankle; S90.551A Superficial foreign body, right ankle, initial encounter; Y84.8 Other medical procedures as the cause of abnormal reaction of the patient, or of later complication, without mention of misadventure at the time of the procedure; Y79.3 Surgical instruments, materials and orthopedic devices (including sutures) associated with adverse incidents; F41.9 Anxiety disorder, unspecified; R09.02 Hypoxemia; K21.9 Gastro-esophageal reflux disease without esophagitis; I10 Essential (primary) hypertension; M62.838 Other muscle spasm; Z88.6 Allergy status to analgesic agent; Z98.1 Arthrodesis status; Z96.653 Presence of artificial knee joint, bilateral; Z98.890 Other specified postprocedural states; Z99.3 Dependence on wheelchair
CPT/HCPCS: 36430; 73560; 80048; 80053; 82306; 83735; 85025; 85610; 85730; 86644; 86850; 86900; 86901; 86920; 97116; 97530; J1940; C1713; C9113; J0330; J0360; J0690; J1100; J2250; J2270; J2405; J2710; J2795; J3010; J7030; P9016